=== PATIENT | female | born 1975 | race Caucasian/White ===

== ENCOUNTER 2021-12-04 06:24 | Day surgery (SDC) | payer BC ==
[2021-12-04] MEDS ORDERED: LACTATED RINGERS 1,000 ML IV ONE ×2 (06:53→08:05)
[2021-12-04] MEDS ORDERED: PROPOFOL 500 MG/50 ML 500 MG/50 ML VIAL ONE (07:22)
--- NOTE | 2021-12-04 07:29 | ANESTHESIA ---
Pre-Anesthesia VS, & Labs - Diagnosis screening - Procedure colonoscopy Vital Signs: Temp Pulse Resp BP Pulse Ox 36.2 C L 61 18 108/72 100 12/04/21 06:48 12/04/21 06:48 12/04/21 06:48 12/04/21 06:48 12/04/21 06:48 Height: 5 ft 9 in Weight (kg): 75 kg Body Mass Index: 24.4 BMI Classification: Healthy weight - NPO Other (prep finished at 8am, no food 24hrs) - Is Patient ?: No Home Medications and Allergies Home Medications: Ambulatory Orders Levothyroxine [Synthroid] 1 tab PO DAILY 12/03/21 Topiramate 1 tab PO BID 12/03/21 Levothyroxine [Synthroid] 1 tab PO DAILY 12/03/21 Topiramate 1 tab PO BID 12/03/21 Allergies/Adverse Reactions: Allergies Allergy/AdvReac Type Severity Reaction Status Date / Time No Known Drug Allergies Allergy Verified 12/03/21 11:18 Anes History & Medical History - Anesthetic History Anesthesia Complications: reports: No previous complications - Medical History Cardiovascular: reports: None Pulmonary: reports: None Gastrointestinal: reports: None Urinary: reports: None Musculoskeletal: reports: None Endocrine/Autoimmune: reports: None, Other (hemithyroidectomy) History of Cancer?: No Exam General: Alert, Oriented x3 Dental: WNL Mouth Opening: Greater than 4 Fingerbreadths Neck Mobility: Normal Mallampati classification: I Thyromental Distance: greater than 6 cm Respiratory: Lungs clear Cardiovascular: Regular rate Plan Anesthesia Type: Total IV Consent for Procedure(s) Verified and Reviewed: Yes Code Status: Attempt Resuscitation ASA classification: 2-Mild systemic disease Is this case an emergency?: No
[2021-12-04] MEDS ORDERED: LIDOCAINE-MPF 2% 5 ML VIAL ONE (07:51)
[2021-12-04 08:30] VITALS: BP 102/60
--- NOTE | 2021-12-04 10:40 | ANESTHESIA POST OP EVALUATION ---
Anesthesia Post Eval - Post Anesthesia Eval Vitals: Last Vital Signs Temp 36.5 C 12/04/21 08:30 Pulse 58 L 12/04/21 08:30 Resp 16 12/04/21 08:30 BP 102/60 12/04/21 08:30 Pulse Ox 100 12/04/21 08:30 CV Function Including HR & BP: Stable Pain Control: Satisfactory Nausea & Vomiting: Negative Mental Status: Baseline Respiratory Status: Airway Patent Hydration Status: Satisfactory Anesthesia Complications: None
== END 2021-12-04 06:25 | disposition home or self-care (01) ==
LOC: SDS 06:24
PROVIDERS: ATTEND Surgery
DX: Z12.11 Encounter for screening for malignant neoplasm of colon (principal)
CPT/HCPCS: 45378; J7120

== ENCOUNTER 2022-02-04 08:59 | Outpatient (CLI) | payer BC ==
--- NOTE | 2022-02-17 12:39 | Mammography Report ---
BILATERAL DIGITAL SCREENING MAMMOGRAM 3D/2D: 02/04/2022 CLINICAL: Routine screening. No prior exams were available for comparison. The tissue of both breasts is extremely dense, which l owers the sensitivity of mammography. No significant masses, calcifications, or other findings are seen in either breast. IMPRESSION: NEGATIVE There is no mammographic evidence of malignancy. A 1 year screening mammogram is recommended. This exam was interpreted at Station ID: [id number]. NOTE: For mammograms, a report in lay terms will be sent to the patient. Approximately 15% of breast malignancies will not be visualized mammographically. In the management of a palpable breast mass, a negative mammogram must not discourage biopsy of a clinically suspicious lesion. Electronically Signed By: Arie cerda/maco:02/16/2022 12:07:49 ACR BI-RADS Category 1: Negative 3341F PARENCHYMAL PATTERN: (VD) - The breast(s) demonstrate(s) extremely dense parenchyma, limiting the sen sitivity of mammography. BI-RADS CATEGORY: (1) - 1 RECOMMENDATION: (ANNUAL) - Recommend routine annual screening mammography. [id number] 1 year screening LATERALITY: (B)
== END 2022-02-04 09:00 | disposition home or self-care (01) ==
LOC: DI.N 08:59
PROVIDERS: ATTEND Obstetrics & Gynecology
DX: Z12.31 Encounter for screening mammogram for malignant neoplasm of breast (principal)